=== PATIENT | male | born 1950 | race Caucasian/White ===

== ENCOUNTER → 2017-07-31 | Day surgery (SDC) | payer MEDICARE, BC ==
[~2017-07-31] MED LIST: Lactated Ringers 1,000 ML IV SCH; Propofol 200 MG/20 ML SDV IV ONE
--- NOTE | 2017-07-31 08:41 | OR ---
DATE OF OPERATION: 07/31/2017 PREOPERATIVE DIAGNOSIS: FOLLOWUP POLYPS. POSTOPERATIVE DIAGNOSIS: FOLLOWUP POLYPS. SURGEON: Melvin Guzman MD PROCEDURE: FULL-LENGTH COLONOSCOPY WITH POLYP REMOVAL X3. ANESTHESIA: [employer]. COMPLICATIONS: None. SPECIMEN: Three small tubular adenomas. FINDINGS: 1. Full-length colonoscopy. 2. Mild sigmoid diverticulosis. 3. Three small adenomas, left colon. RECOMMENDATIONS: Followup colonoscopy in 5 years. INDICATIONS: Mr. Sidhu had a prior colonoscopy approximately 5 years ago. He had some polyps removed. Dr. Arboleda sent him for a followup in that regard. DESCRIPTION OF PROCEDURE: The patient was prepped and draped, placed in the left lateral decubitus position. A lubricated Olympus colonoscope was inserted and easily advanced to the cecum. Direct visualization of the ileocecal valve and appendiceal orifice was accomplished. Bowel prep was adequate. Upon withdrawal of the scope, the cecum ascending and transverse colon were completely benign. Right at the splenic flexure, the patient had a small flat polyp likely hyperplastic, removed in its entirety with 2 cold forceps biopsies. The rest of the descending colon was benign. In the sigmoid colon, the patient has very mild diverticular disease without any inflammatory change. There were no vascular abnormalities, signs of colitis, or bleeding sites. The patient had 2 more small adenomas again likely hyperplastic in the distal sigmoid around 30 cm, both were removed with a cold forceps biopsy x2 in their entirety. Resolution of bleeding was spontaneous. The rest of the rectosigmoid area was benign. The rectal vault was unremarkable. Retroflexion showed no perianal lesions. Air was suctioned. Scope removed without complication. ISIDRO/ETHAN /[id number]
== END ==
LOC: CC.SDS 06:28
PROVIDERS: ATTEND Family Medicine
DX: Z12.11 Encounter for screening for malignant neoplasm of colon (principal); D12.3 Benign neoplasm of transverse colon; K63.5 Polyp of colon; K57.30 Diverticulosis of large intestine without perforation or abscess without bleeding; I10 Essential (primary) hypertension; E55.9 Vitamin D deficiency, unspecified; Z86.010 Personal history of colon polyps; Z79.82 Long term (current) use of aspirin; Z79.899 Other long term (current) drug therapy
CPT/HCPCS: 88305; J2704; J7120